=== PATIENT | female | born 1965 | race Caucasian/White ===

== ENCOUNTER → 2016-08-11 | Outpatient (CLI) | payer MEDICAID ==
--- NOTE | 2016-08-11 13:51 | US ---
EXAMINATION TYPE: US mass soft tissue chest/back DATE OF EXAM: 08/11/2016 COMPARISON: NONE CLINICAL HISTORY: R22.31 Mass of Skin of R Shoulder. 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 No solid or cystic mass is noted at patient's complaint of palpable. IMPRESSION: No significant abnormality seen. Correlate clinically.
== END | disposition home or self-care (01) ==
LOC: RADUSWWP 12:12
PROVIDERS: ATTEND Family Medicine
DX: R22.31 Localized swelling, mass and lump, right upper limb (principal)

== ENCOUNTER → 2017-06-19 | Outpatient (CLI) | payer MEDICAID ==
--- NOTE | 2017-06-19 15:23 | XR ---
Left foot HISTORY: Plantar fasciitis 3 views of the left foot Bone mineralization, joint spaces and alignment are maintained. There is no fracture or dislocation. Mild arthropathy present at the first metatarsophalangeal joint. IMPRESSION: No acute abnormality.
== END | disposition home or self-care (01) ==
LOC: RADXRMAIN 13:36
PROVIDERS: ATTEND Podiatrist Foot & Ankle Surgery
DX: M79.672 Pain in left foot (principal)

== ENCOUNTER → 2017-10-10 | Outpatient (CLI) | payer MEDICAID ==
--- NOTE | 2017-10-11 12:18 | MM ---
Reason for exam: screening (asymptomatic). Last mammogram was performed 3 years and 8 months ago. Physical Findings: A clinical breast exam by your physician is recommended on an annual basis and results should be correlated with mammographic findings. MG 3D Screening Mammo W/Cad Bilateral CC and MLO view(s) were taken. Prior study comparison: January 29, 2014, bilateral MG screening mammo w CAD. November 11, 2011, bilateral digital screening mammo w/CAD. The breast tissue is extremely dense which could obscure a lesion on mammography. No suspicious abnormality. No significant changes when compared with prior studies. ASSESSMENT: Negative, BI-RAD 1 RECOMMENDATION: Routine screening mammogram of both breasts in 1 year.
== END | disposition home or self-care (01) ==
LOC: RADMAMWWP 16:38
PROVIDERS: ATTEND Family Medicine
DX: Z12.31 Encounter for screening mammogram for malignant neoplasm of breast (principal)
CPT/HCPCS: 77063; 77067

== ENCOUNTER 2017-11-24 10:04 | Day surgery (SDC) | payer MEDICAID ==
[2017-11-22 11:45] VITALS: BMI 29.1
[~2017-11-24 10:04] MED LIST: HYDROmorphone 0.5 MG/0.5 ML SYRINGE IVP PRN; LACTATED RINGERS 1,000 ML IV SCH; LIDOCAINE 1% 20 ML VIAL (10MG/ML) FOR IV START INTRADERMA PRN
[2017-11-24 11:52] VITALS: RESP 16; TEMP 98.4
[2017-11-24] MEDS ORDERED: PROPOFOL 10 MG/ML 20 ML VIAL IV ONE (12:07)
--- NOTE | 2017-11-24 12:24 | P.PCN ---
Date of Procedure: 11/24/17 Procedure(s) Performed: BRIEF HISTORY: Patient is a 52-year-old pleasant female, scheduled for an elective colonoscopy as a part of screening for colorectal neoplasia. PROCEDURE PERFORMED: Colonoscopy. PREOPERATIVE DIAGNOSIS: Screening For colon cancer. IV sedation per Anesthesia. PROCEDURE: After informed consent was obtained, the patient, was brought into the endoscopy unit. IV sedation was administered by Anesthesia under continuous monitoring. Digital rectal examination was normal. Initially the Olympus CF- 160 flexible video colonoscope was then inserted in the rectum, gradually advanced into the cecum without any difficulty. Careful examination was performed as the scope was gradually being withdrawn. Ileocecal valve and the appendiceal orifice were visualized and appeared normal. Prep was excellent. Mucosa of the cecum, ascending colon, transverse colon, descending colon, sigmoid colon, and rectum appeared normal. Retroflexion was performed in the rectum and no lesions were seen. The patient tolerated the procedure well. IMPRESSION: Normal-appearing colon from rectum to cecum with no evidence of colorectal neoplasia. RECOMMENDATIONS: Findings of this examination were discussed with the patient is a family. She was advised to have a repeat screening colonoscopy in 10 years.
[2017-11-24] MEDS ORDERED: ONDANSETRON 4 MG/2 ML VIAL IVP ONE (12:40)
[2017-11-24 13:12] VITALS: BP 117/75; PULSE 61
== END 2017-11-24 13:11 | disposition home or self-care (01) ==
LOC: ORWHC2ENDO 10:04
PROVIDERS: ATTEND Internal Medicine Gastroenterology
DX: Z12.11 Encounter for screening for malignant neoplasm of colon (principal); E07.9 Disorder of thyroid, unspecified; Z87.891 Personal history of nicotine dependence; Z79.890 Hormone replacement therapy; Z79.899 Other long term (current) drug therapy; Z88.2 Allergy status to sulfonamides
CPT/HCPCS: J2405; J2704; G0121

== ENCOUNTER → 2019-01-03 | Outpatient (CLI) | payer MEDICAID ==
--- NOTE | 2019-01-03 08:10 | US ---
EXAMINATION TYPE: US gallbladder DATE OF EXAM: 01/03/2019 COMPARISON: NONE CLINICAL HISTORY: K81.0 Cholecystitis. Bloating RUQ pain and nausea. EXAM MEASUREMENTS: Liver Length: 15.5 cm Gallbladder Wall: .2 cm CBD: .3 cm Right Kidney: 9.7 x 3.9 x 4.9 cm Pancreas: Tail obscured by overlying bowel gas Liver: wnl Gallbladder: wnl Evidence for sonographic Tavera's sign: No CBD: wnl Right Kidney: wnl IMPRESSION: No distinct abnormality appreciated.
== END ==
LOC: RADUSWWP 07:37
PROVIDERS: ATTEND Family Medicine
DX: K81.0 Acute cholecystitis (principal)
CPT/HCPCS: 76705

== ENCOUNTER 2021-01-23 15:02 | Emergency (ER) | payer MEDICAID, OTHER ==
[2021-01-23 15:10] VITALS: TEMP 97
[2021-01-23] MEDS ORDERED: DIPH,PERTUS(ACELL)TETVAC-LF 0.5 ML VIAL IM ONE (15:29)
--- NOTE | 2021-01-23 15:57 | ED ---
General Adult HPI - General Chief complaint: Extremity Problem,Nontraumatic Stated complaint: [facility]-L foot chemical burn Time Seen by Provider: 01/23/21 15:16 Source: patient, RN notes reviewed, old records reviewed Mode of arrival: ambulatory Limitations: no limitations - History of Present Illness Initial comments: 55-year-old female with chemical burn to the left foot. Patient had spilled a detergent called Graciela Joyce. The chronic was spilled while at work onto her shoe. She did not have any pain or symptoms initially but after approximately one hour she developed a burning sensation in her toes and foot. She had removed her sock and noted some skin irritation and burn. The patient had washed her foot and removed her shoe. She was sent in for evaluation. She denies any other injury. - Related Data Home Medications Medication Instructions Recorded Confirmed Cetirizine HCl 10 mg PO DAILY 11/22/17 11/22/17 Citalopram Hydrobromide 20 mg PO DAILY 11/22/17 11/22/17 [Citalopram HBr] methIMAzole [Tapazole] 2.5 mg PO DAILY 11/22/17 11/22/17 Allergies Allergy/AdvReac Type Severity Reaction Status Date / Time Sulfa (Sulfonamide Allergy Rash/Hives Verified 11/24/17 11:48 Antibiotics) Review of Systems ROS Statement: Those systems with pertinent positive or pertinent negative responses have been documented in the HPI. ROS Other: All systems not noted in ROS Statement are negative. Past Medical History Past Medical History: Thyroid Disorder Additional Past Medical History / Comment(s): SCREENING History of Any Multi-Drug Resistant Organisms: None Reported Past Surgical History: Section Additional Past Surgical History / Comment(s): X2 Past Anesthesia/Blood Transfusion Reactions: No Reported Reaction Past Psychological History: Depression Past Alcohol Use History: Occasional Past Drug Use History: None Reported - Past Family History Mother Family Medical History: No Reported History General Exam Limitations: no limitations General appearance: alert, in no apparent distress Head exam: Present: atraumatic, normocephalic Eye exam: Present: normal appearance, PERRL ENT exam: Present: normal exam Neck exam: Present: normal inspection. Absent: tenderness, meningismus Respiratory exam: Present: normal lung sounds bilaterally. Absent: respiratory distress, wheezes Cardiovascular Exam: Present: regular rate, normal rhythm GI/Abdominal exam: Present: soft. Absent: distended, tenderness, guarding Extremities exam: Present: other (There is burn to the dorsal surface of the foot with some irritation on the third fourth and fifth toe. There is a blister on the fourth digit.) Course Vital Signs 01/23/21 15:06 Temperature 97.0 F L Pulse Rate 81 Respiratory 19 Rate Blood Pressure 113/76 O2 Sat by Pulse 98 Oximetry Medical Decision Making - Medical Decision Making Poison control had recommended irrigation with warm soapy water and topical antibiotic. This was performed in the emergency department. Patient will continue to apply topical antibiotic ointment at home. She will follow-up with her primary care physician. Disposition Clinical Impression: Chemical burn Disposition: HOME SELF-CARE Condition: Good Instructions (If sedation given, give patient instructions): Chemical Skin Burn (ED) Is patient prescribed a controlled substance at d/c from ED?: No Referrals: Agustin Cardenas DO [Primary Care Provider] - 1-2 days Time of Disposition: 16:25
[2021-01-23] MEDS ORDERED: BACITRACIN ZINC 500 UNIT/GM OINT 28.4 GM TUBE TOPICAL ONE (16:34)
[2021-01-23 18:50] VITALS: BP 138/90; PULSE 74; RESP 18
== END 2021-01-23 17:20 | disposition home or self-care (01) ==
LOC: EC 15:02
DX: T25.632A Corrosion of second degree of left toe(s) (nail), initial encounter (principal); Z88.2 Allergy status to sulfonamides; Z23 Encounter for immunization
CPT/HCPCS: 16020; 90471; 90715; 99283

== ENCOUNTER → 2022-01-05 | Outpatient (CLI) | payer BC ==
--- NOTE | 2022-01-06 09:35 | MM ---
Reason for Exam: Screening (asymptomatic). Last mammogram was performed 4 year(s) and 3 month(s) ago. Patient History: Menarche at age 16. First Full-Term at age 31. Risk Values: Rossy 5 year model risk: 1.2%. NCI Lifetime model risk: 8.5%. Prior Study Comparison: 11/11/2011 Bilateral Screening Mammogram, [facility]. 01/29/2014 Bilateral Screening Mammogram, [facility]. 10/10/2017 Bilateral Screening Mammogram, [facility]. Tissue Density: The breast tissue is heterogeneously dense. This may lower the sensitivity of mammography. Findings: Analyzed By CAD. There is no suspicious group of microcalcifications or new suspicious mass in either breast. Right breast mole identified. Overall Assessment: Negative, BI-RAD 1 Management: Screening Mammogram of both breasts in 1 year. A clinical breast exam by your physician is recommended on an annual basis and results should be correlated with mammographic findings. Electronically signed and approved by: Matt Victor D.O.
== END | disposition home or self-care (01) ==
LOC: RADMAMWWP 16:43
PROVIDERS: ATTEND Family Medicine
DX: Z12.31 Encounter for screening mammogram for malignant neoplasm of breast (principal)
CPT/HCPCS: 77063; 77067

== ENCOUNTER → 2024-08-30 | Outpatient (CLI) | payer OTHER ==
[2024-08-30 15:47] LABS: Basophils # (A) 0.06 X 10*3/uL (0.00-0.10); Basophils % (A) 1.1 %; Eosinophils % (A) 3.7 %; HGB 14.4 g/dL (12.0-15.0); Lymphocytes # (A) 1.88 X 10*3/uL (0.90-5.00); Lymphocytes % (A) 34.8 %; MCH 28.6 pg (27.0-32.0); MCHC 32.7 g/dL (32.0-37.0); MCV 87.5 FL (80.0-97.0); Mean Platelet Volume 9.7 FL (9.5-12.2); Monocytes # (A) 0.47 X 10*3/uL (0.20-1.00); Monocytes % (A) 8.7 %; NRBC Per 100 WBC 0 X 10*3/uL (0.00-0.01); Neutrophils # (A) 2.78 X 10*3/uL (1.80-7.70); Neutrophils % (A) 51.3 %; Platelet Count 289 X 10*3/uL (140-440); RBC 5.03 X 10*6/uL (4.10-5.20); WBC 5.41 X 10*3/uL (4.50-10.00)
[2024-08-30 17:03] LABS: ALT 19 U/L (8-44); AST 19 U/L (13-35); Albumin 4.3 g/dL (3.8-4.9); Albumin/Globulin Ratio 1.95 Ratio (1.60-3.17); Alkaline Phosphatase 93 U/L (41-126); BUN/Creat Ratio 11.38 Ratio (12.00-20.00); Blood Urea Nitrogen 9.1 mg/dL (9.0-27.0); Calcium 9.4 mg/dL (8.7-10.3); Carbon Dioxide 24.1 mmol/L (21.6-31.8); Chloride 113 mmol/L (96-109); Chol/HDL Ratio 3.24 Ratio; Globulin 2.2 g/dL (1.6-3.3); Glucose 92 mg/dL (70-110); LDL Cholesterol,Calculated 108.9 mg/dL (0.0-131.0); Potassium 4.4 mmol/L (3.5-5.5); Sodium 152 mmol/L (135-145); T4, Free (Free Thyroxine) 1.02 ng/dL (0.80-1.80); Total Bilirubin 0.5 mg/dL (0.3-1.2); Total Protein 6.5 g/dL (6.2-8.2)
== END | disposition home or self-care (01) ==
LOC: LABWHC1 11:05
PROVIDERS: ATTEND Family Medicine
DX: Z00.00 Encounter for general adult medical examination without abnormal findings (principal); E78.5 Hyperlipidemia, unspecified; E66.09 Other obesity due to excess calories
CPT/HCPCS: 36415; 80053; 80061; 83036; 84439; 84443; 85025